=== PATIENT | male | born 1975 | race Caucasian/White ===

== ENCOUNTER 2020-03-21 11:25 | Emergency (ER) | payer OTHER ==
[~2020-03-21] VITALS: Ht 182.9 cm; Wt 96.2 kg
[2020-03-21] MEDS ORDERED: PREDNISONE 20 M20 MG PO (12:47)
[2020-03-21] MEDS ORDERED: APAP W/CODEINE1 TA2 PO (12:47)
[2020-03-21] MEDS ORDERED: PROAIR HFA8.5 GM INH (12:47)
[2020-03-21 13:08] VITALS: BP 142/81
== END 2020-03-21 13:08 | disposition home or self-care (01) ==
LOC: M.ERS 11:25
DX: U07.1 COVID-19 (principal)